=== PATIENT | female | born 1995 | race Caucasian/White ===

== ENCOUNTER → 2021-08-23 13:32 | Outpatient (CLI) | payer OTHER, SELFPAY ==
--- NOTE | 2021-08-23 | DI.NM.S_ITS ---
[place] +---------+ [facility] +---------+ : : [address] : [address] : : : : [id number] : : : : Phone: [phone]+ Echocardiogram Report + + :Name: MARIAJOSE TINSLEY Study Date: 08/23/2021 Height: 61 in : :[facility] ReadingLocation: Weight: 110 lb : : Gender: Female BSA: 1.5 m2 : :: 1995 Age: 26 yrs BP: 122/85 mmHg: :Reason For Study: S/P ASD closure, murmur, SOB, palpitations : : Performed By: PATY PERRY : :Referring: KATHRYN BRADSHAW : + + Interpretation Summary The patient was in normal sinus rhythm during the exam. The left ventricle is normal in size and wall thickness. The ejection fraction is estimated to be 55-60%. The right ventricle is normal in size and function. ASD closure device is well-seated There is no Doppler evidence for an interatrial shunt. The mitral valve leaflets appear mildly thickened, but open well. No obvious significant mitral valve prolapse however there is a flattening of mitral leaflet closure plane. There is moderate mitral regurgitation. The mitral regurgitant jet is eccentrically directed. The IVC is of normal diameter and collapses greater than 50% with a sniff. This suggests a low right atrial pressure of 3 mm Hg. Procedure: A two-dimensional transthoracic echocardiogram with color flow and Doppler was performed. The study quality was technically adequate. There is no prior echocardiogram noted for this patient. The patient was in normal sinus rhythm during the exam. Left Ventricle: The left ventricle is normal in size and wall thickness. There is no thrombus. The ejection fraction is estimated to be 55-60%. Septal motion is consistent with conduction abnormality. MV E/A: 1.5 Med Peak E' Jagdish: 6.8 cm/sec E/E' med: 12.1. Right Ventricle: The right ventricle is normal in size and function. Atria: The left atrial size is normal. Right atrial size is normal. ASD closure device is well-seated. There is no Doppler evidence for an interatrial shunt. Mitral Valve: The mitral valve leaflets appear mildly thickened, but open well. There is a flat closure plane of the the mitral valve leaflets. No obvious significant mitral valve prolapse however there is a flattening of mitral leaflet closure plane. The mitral regurgitant jet is eccentrically directed. There is moderate mitral regurgitation. Aortic Valve: The aortic valve opens well. The aortic valve is not well visualized. There is no aortic valve stenosis. There is trace aortic regurgitation. Tricuspid Valve: The tricuspid valve is normal. There is trace tricuspid regurgitation. The right ventricular systolic pressure is estimated to be at least 25 mmHg based on an estimated right atrial pressure of 3 mm Hg. Pulmonic Valve: The pulmonic valve leaflets are thin and pliable; valve motion is normal. There is trace pulmonic regurgitation. Great Vessels: The aortic root is normal size. The ascending aorta could not be visualized. The aortic arch is normal in size. The IVC is of normal diameter and collapses greater than 50% with a sniff. This suggests a low right atrial pressure of 3 mm Hg. Pericardium/ Pleura There is no pericardial effusion. There is no pleural effusion. MMode/2D Measurements & Calculations LVIDd: 3.9 cm LVOT diam: 1.6 cm LVIDs: 3.2 cm Ao root diam: 2.0 cm FS: 19.0 % asc Aorta Diam: 1.9 cm IVSd: 0.64 cm LVPWd: 0.98 cm LV chaudhry. diameter/BSA (cm/m^2): 2.7 LV sys. diameter/BSA (cm/m^2): 2.2 LA A2 area: 14.3 cm2 RA long axis: 4.0 cm LA A4 area: 12.6 cm2 RA area: 13.1 cm2 LA length (vol): 4.1 cm RA vol: 36.8 ml LA vol: 37.2 ml RA : 25.1 ml/m2 LA vol index: 25.4 ml/m2 IVC diam: 1.5 cm RVD1 (basal): 3.9 cm TAPSE: 2.4 cm Doppler Measurements & Calculations Ao V2 max: 126.7 cm/sec LVOT Max Jagdish: 101.4 cm/sec Ao V2 mean: 86.3 cm/sec LV V1 max P.1 mmHg Ao max P.4 mmHg LV V1 VTI: 19.6 cm Ao mean P.3 mmHg KEYON(I,D): 1.5 cm2 Ao V2 VTI: 24.9 cm KEYON(V,D): 1.5 cm2 sev ratio: 0.79 KEYON indexed to BSA (cm^2/m^2): 1.0 MV E max jagdish: 82.7 cm/sec TR max jagdish: 240.9 cm/sec MV A max jagdish: 55.4 cm/sec TR max P.2 mmHg MV E/A: 1.5 PA V2 max: 75.6 cm/sec Med Peak E' Jagdish: 6.8 cm/sec PA V2 mean: 58.4 cm/sec E/E' med: 12.1 PA mean P.4 mmHg Lat Peak E' Jagdish: 12.4 cm/sec E/E' lat: 6.7 E/e' average: 9.4 MV dec time: 0.25 sec SV(LVOT): 37.5 ml Reading Physician:05:18 PM
[2021-08-23 15:00] LABS: COVID19 -Nasal RAPID Negative (Negative)
--- NOTE | 2021-08-23 19:24 | DI.NM.S_ITS ---
DATE OF SERVICE: 08/23/2021 PROCEDURE PERFORMED: Exercise treadmill stress test without imaging. ORDERING PROVIDER: Dr. Gómez Carreno. INDICATIONS: The patient is a 26-year-old female with a history of percutaneous ASD closure. FINDINGS: 1. The patient was able to exercise for 8 minutes, 53 seconds on a standard Augie protocol, suggesting moderately reduced exercise capacity with an VERÓNICA of +38%, achieving 10.1 METs. 2. She had a normal heart rate and blood pressure response to exercise, achieving a maximum heart rate of 188 BPM (96% of her predicted maximum). 3. She had no chest pain or other anginal discomfort. 4. Her resting ECG shows sinus rhythm with normal ST segments. With exercise, there were no significant ST-segment shifts or arrhythmias. IMPRESSION: 1. Normal exercise treadmill study for ischemia. 2. Moderately reduced exercise capacity without angina or arrhythmias. Miya Cary - Robert/star doc#: [id number]/job#: [id number] dd: 08/23/2021 16:38:00 dt: 08/23/2021 17:20:00 DICTATING /COPIES TO: Kevin Robles MD; Gómez Carreno MD COPIES MNE: MARVA;
== END ==
PROVIDERS: PCP Student in an Organized Health Care Education/Training Program; Referring Provider Internal Medicine Cardiovascular Disease; Visit Provider Internal Medicine Cardiovascular Disease
DX: I34.0 Nonrheumatic mitral (valve) insufficiency (principal); R00.2 Palpitations; Q21.1 Atrial septal defect; R01.1 Cardiac murmur, unspecified; R06.02 Shortness of breath; Z87.74 Personal history of (corrected) congenital malformations of heart and circulatory system; Z20.822 Contact with and (suspected) exposure to COVID-19
CPT/HCPCS: 87635; 93017; 93306